=== PATIENT | male | born 2000 | race Caucasian/White ===

== ENCOUNTER 2021-09-22 20:17 | Inpatient (IN) ==
[2021-09-22 22:42] LABS: Basophils % 0.4 % (0.0-0.8); Eosinophils # 0.2 10*3/uL (0.0-0.87); Eosinophils % 2.3 % (0.00-10.9); Hematocrit 45.6 VOL% (42.0-52.0); Hemoglobin 15.1 GM/DL (14.0-18.0); Immature Granulocytes % 0.3 %; Immature Granulocytes Absolute 0.02 #; Lymphocytes # 3.4 10*3/uL (1.4-4.0); Lymphocytes % 45.9 % (21.2-54.2); Mean Corpuscular HGB Conc 33.1 GM/DL (32-36); Mean Corpuscular Volume 90.3 FL (87-102); Mean Platelet Volume 10.3 FL (9.6-12.0); Monocytes # 0.6 10*3/uL (0.11-0.8); Monocytes % 7.6 % (1.7-12.7); Neutrophils % 43.5 % (38.7-73.9); Platelet Count 238 T/CUMM (130-400); Red Blood Count 5.05 MC/CUMM (3.8-5.5); Red Cell Distribution Width 11.8 % (9.3-17.3); White Blood Count 7.4 T/CUMM (4-12)
[2021-09-22 23:17] LABS: Alanine Aminotransferase 21 U/L (16-61); Albumin 4.1 G/DL (3.4-5.0); Alkaline Phosphatase 95 U/L (45-117); Aspartate Amino Transferase 9 U/L (0-37); Bilirubin,Total < 0.39 MG/DL (0.20-1.00); Blood Urea Nitrogen 17 MG/DL (7-18); Calcium 9.5 MG/DL (8.5-10.1); Carbon Dioxide 30 MMOL/L (21-32); Chloride 108 MMOL/L (98-107); Glucose 94 MG/DL (74-106); Osmolality,Calculated 282.3 MOS/KG (273-304); Potassium 3.7 MMOL/L (3.5-5.1); Sodium 141 MMOL/L (136-145); Total Protein 7.9 G/DL (6.4-8.2)
[2021-09-23] MEDS ORDERED: ACETAMINOPHEN 325 MG TABLET PO PRN (00:16)
[2021-09-23] MEDS: PANTOPRAZOLE 40 MG TABLET PO SCH (10:22)
[2021-09-23] MEDS ORDERED: LIDOCAINE 1%/EPI INJ 20 ML VIAL ONE (12:26)
[2021-09-23] MEDS ORDERED: MIDAZOLAM 2 MG/2 ML VIAL ONE (12:28)
[2021-09-23] MEDS ORDERED: KETAMINE 500 MG/10 ML VIAL ONE (13:12)
[2021-09-23] MEDS ORDERED: propofoL 200 MG/20 ML VIAL IV ONE (13:25)
[2021-09-23] MEDS ORDERED: LACTATED RINGERS 1,000 ML IV SCH (13:30)
[2021-09-23] MEDS ORDERED: MEPERIDINE 25 MG/1 ML VIAL ONE (13:43)
[2021-09-23] MEDS ORDERED: KETOROLAC 30 MG/1 ML VIAL IV ONE (13:45)
[2021-09-23] MEDS: MEPERIDINE 25 MG/1 ML VIAL IV PRN (13:45)
[2021-09-23] MEDS ORDERED: PROMETHAZINE INJ 25 MG in SODIUM CHLORIDE 0.9% 50 ML IV PRN (13:54)
[2021-09-23] MEDS ORDERED: HYDROmorphone 1 MG/1 ML SYRINGE IV PRN (13:54)
[2021-09-23] MEDS ORDERED: diphenhydrAMINE 50 MG/1 ML VIAL IV PRN (13:54)
[2021-09-23] MEDS ORDERED: ONDANSETRON 4 MG/2 ML VIAL IV PRN (13:54)
[2021-09-23] MEDS: KETOROLAC 10 MG TABLET PO SCH ×2 (17:20→23:01)
[2021-09-23] MEDS: ONDANSETRON 4 MG/2 ML VIAL IV PRN (18:50)
[2021-09-24] MEDS: KETOROLAC 10 MG TABLET PO SCH ×4 (05:19→23:38)
[2021-09-24] MEDS: PANTOPRAZOLE 40 MG TABLET PO SCH (08:23)
[2021-09-24] MEDS: ONDANSETRON 4 MG/2 ML VIAL IV PRN (23:40)
[2021-09-25] MEDS: MEPERIDINE 25 MG/1 ML VIAL IV PRN (00:57)
[2021-09-25] MEDS: KETOROLAC 10 MG TABLET PO SCH ×3 (05:00→17:04)
[2021-09-25] MEDS: PANTOPRAZOLE 40 MG TABLET PO SCH (09:53)
[2021-09-25] MEDS: ONDANSETRON 4 MG/2 ML VIAL IV PRN ×2 (09:56→15:56)
[2021-09-25] MEDS ORDERED: DOXYCYCLINE HYCLATE INJ 200 MG, LIDOCAINE 1% INJ 20 ML in STERILE WATER INJ 30 ML INTRAPLEUR ONE (10:00)
[2021-09-26] MEDS: KETOROLAC 10 MG TABLET PO SCH ×4 (00:15→17:03)
[2021-09-26] MEDS: ONDANSETRON 4 MG/2 ML VIAL IV PRN ×3 (07:11→23:36)
[2021-09-26] MEDS: PANTOPRAZOLE 40 MG TABLET PO SCH (10:07)
[2021-09-27] MEDS: KETOROLAC 10 MG TABLET PO SCH ×2 (00:08→06:04)
[2021-09-27 07:30] VITALS: BP 117/59
[2021-09-27] MEDS: PANTOPRAZOLE 40 MG TABLET PO SCH (08:49)
== END 2021-09-27 10:50 | disposition home or self-care (01) | DRG 201 ==
LOC: N.ED 20:17 → N.3E 09-23 00:16
PROVIDERS: ADMIT Surgery; ATTEND Surgery